=== PATIENT | male | born 1950 | race Caucasian/White ===

== ENCOUNTER 2025-08-06 05:38 | Emergency (ER) | payer MEDICARE, MEDICAID ==
[~2025-08-06] VITALS: Ht 172.7 cm; Wt 96.4 kg
--- NOTE | 2025-08-06 06:30 | Physician Documentation ---
History of Present Illness General Chief Complaint: Back Pain Stated Complaint: BACK ISSUES Time Seen by MD: 06:30 Mode of Arrival: POV History of Present Illness Initial Comments The patient is a 75-year-old male who presents with numbness to his left leg. Patient has a history of back problems to include fusion in the past. The patient states he was lifting heavy logs a proximally three weeks ago and developed worsening his chronic back pain. The patient denies any weakness in that left leg. Patient states the pain is intermittent but worsens at times. Patient states when it is bad he has been taking tramadol as well. Patient denies any bowel or bladder insufficiency. Patient denies any fevers chills nausea or vomiting. Medication Reconciliation Scheduled PRN Hydrocodone Bit/Acetaminophen (Hydrocodone-Apap 10-325 Tablet), 1 TABLET PO Q8H PRN for pain Review of Systems All Other Systems at this time: Reviewed and Negative Physical Exam Physical Exam Vital Signs: Temperature: 97.0, Source: Oral, Heart Rate: 96, Respiratory Rate: 16, BP: 161/83, Pulse Oximetry: 95, Weight: 96.360 Oxygen Flow Rate: 0 Physical Exam VITALS: Reviewed and as above. GENERAL: Alert, no apparent distress. HEENT: Normocephalic, atraumatic, PERRL, EOMI, dry mucosa, no erythema RESPIRATORY: Lungs clear, normal breath sounds, no respiratory distress. CHEST: No accessory muscle use, no retractions CV: Regular rate, rhythm, no edema, no murmur, No: JVD GI: Soft, non-tender, bowels sounds present, no rebound, guarding, or rigidity BACK: No CVA tenderness, or swelling MUSCULOSKELETAL: No deformities, no edema SKIN: Warm and dry, no rash NEURO: Oriented x4, No motor or sensory deficit PSYCH: Normal mood and affect, no agitation Progress Results/Orders Results/Orders Vital Signs 08/06/25 08/06/25 08/06/25 08/06/25 05:42 06:14 06:14 06:47 Temp 97.0 97.0 97.0 Pulse 107 96 97 Resp 20 16 16 B/P (MAP) 180/67 161/83 (109) 161/83 Pulse Ox 98 95 97 O2 Flow Rate 0 0 Medical Decision Making Findings The patient is a 75-year-old male with a history of chronic back pain who complains of chronic pain that has gotten acutely slightly worse the patient has no high-risk neurologic features he has no weakness he does complain of some slight numbness he has no bowel or bladder insufficiency. The patient will be given a short course of pain medication the patient has been advised if he develops worsening that he should return to the emergency room. Prior hospitalizations have been reviewed. His pulse oximetry was interpreted as normal and adequate. Departure Disposition: HOME / SELF CARE / HOMELESS Impression: Primary Impression: Low back pain Qualified Codes: M54.50 - Low back pain, unspecified; G89.29 - Other chronic pain Discharge Instructions: Chronic Back Pain Additional Instructions: Use ibuprofen for mild pain, add the [place] for more severe pain. Follow up with your provider and return if he develops worsening of your symptoms. Referrals: NO PRIMARY CARE PROVIDER (PCP) KARINA JAVIER MD Prescriptions Hydrocodone Bit/Acetaminophen (Hydrocodone-Apap 10-325 Tablet) 10mg/325mg Tablet 1 TABLET PO Q8H PRN for pain, #10 TABLET Prov: YVETTE SANDERS MD 08/06/25 Signature Scribe Signature: no scribe Attestation: The note accurately reflects work and decisions made by me.Yvette Sanders MD 08/06/25 10:22 YVETTE SANDERS MD Aug 06, 2025 06:30
[2025-08-06] MEDS ORDERED: HYDR-3973 PO (06:44)
[2025-08-06 06:47] VITALS: BP 161/83; PULSE 97; RESP 16; TEMP 97; O2SAT 97
== END 2025-08-06 06:50 | disposition home or self-care (01) ==
LOC: ER 05:40
DX: M54.50 Low back pain, unspecified (principal); R20.0 Anesthesia of skin; X50.0XXA Overexertion from strenuous movement or load, initial encounter; Y93.89 Activity, other specified; Y92.89 Other specified places as the place of occurrence of the external cause; Y99.8 Other external cause status
CPT/HCPCS: 99283